=== PATIENT | female | born 1995 | race Caucasian/White ===

== ENCOUNTER 2018-08-16 14:20 | Inpatient (IN) | payer OTHER ==
[~2018-08-16] VITALS: Ht 167.6 cm; Wt 0.2 kg
[2018-08-16] MEDS ORDERED: Verotin-Gr Cap1 EACH PO (14:51)
[2018-08-16 15:28] LABS: BASOPHILS ABSOLUTE AUTO 0.04 K/mm3 (0.00-0.23); BASOPHILS PERCENT AUTO 0 % (0-2); EOSINOPHILS ABSOLUTE AUTO 0.05 K/mm3 (0.00-0.68); EOSINOPHILS PERCENT AUTO 0 % (0-6); Hematocrit 38.4 % (33.0-51.0); Hemoglobin 13.3 g/dL (11.5-16.0); IMMATURE GRAN ABSOLUTE AUTO 0.05 K/mm3 (0.00-0.10); IMMATURE GRAN PERCENT AUTO 0 % (0-1); LYMPHOCYTES ABSOLUTE AUTO 1.94 K/mm3 (0.84-5.20); LYMPHOCYTES PERCENT AUTO 15 % (21-46); MONOCYTES ABSOLUTE AUTO 0.98 K/mm3 (0.16-1.47); MONOCYTES PERCENT AUTO 8 % (4-13); Mean Corpuscular HGB 30.1 pg (26.0-34.0); Mean Corpuscular HGB Conc 34.6 g/dL (31.5-36.5); Mean Corpuscular Volume 87 fL (80-100); Mean Platelet Volume 12.9 fL (9.1-12.4); NEUTROPHILS ABSOLUTE AUTO 9.92 K/mm3 (1.96-9.15); NEUTROPHILS PERCENT AUTO 76 % (41-73); Platelet Count 184 K/mm3 (150-400); RDW Coefficient Variation 13.1 % (11.7-14.2); RDW Standard Deviation 40.6 fL (35.1-46.3); Red Blood Cell Count 4.42 M/mm3 (3.80-5.20); White Blood Cell Count 12.98 K/mm3 (4.00-11.30)
[2018-08-17 17:28] LABS: PO2 Cord - Arterial > 16 mmHg (16-20); pH Cord - Arterial 7.17 (7.28-7.35)
[2018-08-17 17:31] LABS: PO2 Cord - Venous 14.5 mmHg (28-32); pH Umbilical Cord - Venous 7.28 (7.26-7.35)
--- NOTE | 2018-08-17 17:51 | NUR ---
08/17/18 1751 Luana Jones VIABLE MALE INFANT DELIVERED WITH WHITE VACUUM X 1 PULL VIA LOWER TRANSVERSE INCISION AT 1715. 2 KIWI VACUUM ATTMEMPTS WITH 2 POP OFFS. WEIGHT 3385 GMS, 7# 7 OZ. LENGTH 20.5 INCHES, HEAD 14.5 INCHES, CHEST 13.25 INCHES. 9/9 APGARS. CORD SEGMENT W/AFSHIN RT FOR CORD GAS. CORD BLOOD GIVEN TO Radha DOWLING RN. PLACENTA 535 GMS.
[2018-08-18 06:22] LABS: BASOPHILS ABSOLUTE AUTO 0.02 K/mm3 (0.00-0.23); BASOPHILS PERCENT AUTO 0 % (0-2); EOSINOPHILS PERCENT AUTO 0 % (0-6); Hematocrit 34.6 % (33.0-51.0); Hemoglobin 11.7 g/dL (11.5-16.0); IMMATURE GRAN ABSOLUTE AUTO 0.09 K/mm3 (0.00-0.10); IMMATURE GRAN PERCENT AUTO 1 % (0-1); LYMPHOCYTES ABSOLUTE AUTO 1.84 K/mm3 (0.84-5.20); LYMPHOCYTES PERCENT AUTO 11 % (21-46); MONOCYTES ABSOLUTE AUTO 0.97 K/mm3 (0.16-1.47); MONOCYTES PERCENT AUTO 6 % (4-13); Mean Corpuscular HGB 29.6 pg (26.0-34.0); Mean Corpuscular HGB Conc 33.8 g/dL (31.5-36.5); Mean Corpuscular Volume 88 fL (80-100); NEUTROPHILS ABSOLUTE AUTO 14.55 K/mm3 (1.96-9.15); NEUTROPHILS PERCENT AUTO 83 % (41-73); Platelet Count 183 K/mm3 (150-400); RDW Standard Deviation 41.6 fL (35.1-46.3); Red Blood Cell Count 3.95 M/mm3 (3.80-5.20); White Blood Cell Count 17.47 K/mm3 (4.00-11.30)
[2018-08-18 06:32] LABS: Mean Platelet Volume 13.2 fL (9.1-12.4)
--- NOTE | 2018-08-19 00:02 | NUR ---
SLIGHT SWELLING ABOVE IV INSERTION SITE. PATIENT DENIES PAIN AT SITE AND IV FLUSHES WITHOUT COMPLICATION. WILL ATTEMPT TO BABY IV FOR NEXT IV ABX DOSE DUE AT 0500. PATIENT INFORMED TO NOTIFY RN IF SITE BECOMES PAINFUL OR RED.
[2018-08-19] MEDS ORDERED: IBUP800 PO (09:07)
[2018-08-19] MEDS ORDERED: Percocet 5-3251 EACH PO (09:08)
--- NOTE | 2018-08-19 10:26 | NUR ---
DISCHARGE PARENTS VERBALIZE UNDERSTANDING OF DISCHARGE INSTRUCTIONS AND FOLLOW UP APPOINTMENTS. NO QUESTIONS OR CONCERNS. CARING FOR SELF AND INDEPENDANTLY.
--- NOTE | 2018-08-19 11:25 | NUR ---
CONSULT. GETTING READY TO GO HOME AND BABY IS ASLEEP. HE HAS BEEN LATCHING BETTER THROUGH THE NIGHT AND MOM IS FEELING MORE CONFIDENT. IS USING A SHIELD DUE TO FLAT NIPPLES. INSTRUCT IN CHANGES TO EXPECT DURING THE FIRST WEEK WITH FEEDINGS AND WITH BABY AND REFERRED TO [facility] FOR PHOTOS AND INFORMATION. DENIES QUESTIONS.
== END 2018-08-19 10:40 | disposition home or self-care (01) | DRG 788 ==
LOC: OBS 14:20 → BC 14:22 → OBS 14:26 → BC 14:37
PROVIDERS: Obstetrics & Gynecology; ADMIT Nurse Practitioner Obstetrics & Gynecology
PROC: 3E033VJ Introduction of Other Hormone into Peripheral Vein, Percutaneous Approach (ICD-10-PCS; 2018-08-17)
PROC: 10907ZC Drainage of Amniotic Fluid, Therapeutic from Products of Conception, Via Natural or Artificial Opening (ICD-10-PCS; 2018-08-17)
PROC: 10D00Z1 Extraction of Products of Conception, Low, Open Approach (ICD-10-PCS; principal; 2018-08-17 17:30)
DX: O14.94 Unspecified pre-eclampsia, complicating childbirth (principal); Z3A.38 38 weeks gestation of pregnancy; Z37.0 Single live birth; O36.8390 Maternal care for abnormalities of the fetal heart rate or rhythm, unspecified trimester, not applicable or unspecified; O77.9 Labor and delivery complicated by fetal stress, unspecified
CPT/HCPCS: 36415; 51702; 82803; 85025; 86850; 86900; 86901; J0690; J1100; J1885; J2210; J2405; J2590; J2704; J2765; J3010; J7120

== ENCOUNTER → 2018-08-16 | Outpatient (CLI) | payer OTHER ==
[~2018-08-16] MED LIST: IBUP800 PO; Percocet 5-3251 EACH PO; Verotin-Gr Cap1 EACH PO
[2018-08-16 11:31] LABS: Creatinine Urine 58.6 mg/dL (27.00-270.00); Protein, Urine Quantitative 10.5 mg/dL (0.0-11.9)
== END ==
LOC: LAB 10:59 → LAB SHORT 10:59
PROVIDERS: Nurse Practitioner Obstetrics & Gynecology
DX: Z36.89 Encounter for other specified antenatal screening (principal)
CPT/HCPCS: 81050; 82570; 84156

== ENCOUNTER → 2019-09-15 | Outpatient (CLI) | payer OTHER | END | disposition home or self-care (01) | LOC: LAB EV 10:39 → LAB SHORT 10:39 | DX: J03.90 Acute tonsillitis, unspecified (principal) | CPT/HCPCS: 87081 ==

== ENCOUNTER 2021-05-31 05:40 | Inpatient (IN) | payer OTHER ==
[~2021-05-31] VITALS: Ht 167.6 cm; Wt 111.4 kg
[2021-05-31 06:19] LABS: BASOPHILS ABSOLUTE AUTO 0.04 K/mm3 (0.00-0.23); BASOPHILS PERCENT AUTO 0 % (0-2); EOSINOPHILS ABSOLUTE AUTO 0.06 K/mm3 (0.00-0.68); EOSINOPHILS PERCENT AUTO 1 % (0-6); Hematocrit 35.3 % (33.0-51.0); Hemoglobin 12.4 g/dL (11.5-16.0); IMMATURE GRAN ABSOLUTE AUTO 0.04 K/mm3 (0.00-0.10); IMMATURE GRAN PERCENT AUTO 0 % (0-1); LYMPHOCYTES ABSOLUTE AUTO 2.53 K/mm3 (0.84-5.20); LYMPHOCYTES PERCENT AUTO 27 % (21-46); MONOCYTES ABSOLUTE AUTO 0.63 K/mm3 (0.16-1.47); MONOCYTES PERCENT AUTO 7 % (4-13); Mean Corpuscular HGB 30.1 pg (26.0-34.0); Mean Corpuscular HGB Conc 35.1 g/dL (31.5-36.5); Mean Corpuscular Volume 86 fL (80-100); Mean Platelet Volume 12.2 fL (9.1-12.4); NEUTROPHILS ABSOLUTE AUTO 6.11 K/mm3 (1.96-9.15); NEUTROPHILS PERCENT AUTO 65 % (41-73); Platelet Count 174 K/mm3 (150-400); RDW Coefficient Variation 12.8 % (11.7-14.2); RDW Standard Deviation 39.4 fL (35.1-46.3); Red Blood Cell Count 4.12 M/mm3 (3.80-5.20); White Blood Cell Count 9.41 K/mm3 (4.00-11.30)
--- NOTE | 2021-05-31 07:56 | NUR ---
05/31/21 0756 Armond Morillo PT ON ANCEF 2G BEFORE ENTERING OR AT 0727
[2021-05-31 08:30] LABS: PCO2 Cord - Arterial 52.4 mmHg (40-50); PO2 Cord - Arterial 16.3 mmHg (16-20); pH Cord - Arterial 7.21 (7.28-7.35)
[2021-05-31 08:32] LABS: PCO2 Cord - Venous 40.1 mmHg (40-50); pH Umbilical Cord - Venous 7.35 (7.26-7.35)
--- NOTE | 2021-05-31 09:49 | NUR ---
OUT TO ROOM WITH NATHANIEL, REPT TO Ester OSBORN RN
[2021-06-01 04:36] LABS: BASOPHILS ABSOLUTE AUTO 0.04 K/mm3 (0.00-0.23); BASOPHILS PERCENT AUTO 0 % (0-2); EOSINOPHILS ABSOLUTE AUTO 0.06 K/mm3 (0.00-0.68); EOSINOPHILS PERCENT AUTO 1 % (0-6); Hematocrit 33.9 % (33.0-51.0); Hemoglobin 11.4 g/dL (11.5-16.0); IMMATURE GRAN ABSOLUTE AUTO 0.04 K/mm3 (0.00-0.10); IMMATURE GRAN PERCENT AUTO 0 % (0-1); LYMPHOCYTES PERCENT AUTO 18 % (21-46); MONOCYTES ABSOLUTE AUTO 0.78 K/mm3 (0.16-1.47); MONOCYTES PERCENT AUTO 7 % (4-13); Mean Corpuscular HGB 29.2 pg (26.0-34.0); Mean Corpuscular HGB Conc 33.6 g/dL (31.5-36.5); Mean Corpuscular Volume 87 fL (80-100); Mean Platelet Volume 12.3 fL (9.1-12.4); NEUTROPHILS ABSOLUTE AUTO 8.38 K/mm3 (1.96-9.15); NEUTROPHILS PERCENT AUTO 74 % (41-73); Platelet Count 159 K/mm3 (150-400); RDW Coefficient Variation 13.1 % (11.7-14.2); RDW Standard Deviation 40.6 fL (35.1-46.3); Red Blood Cell Count 3.91 M/mm3 (3.80-5.20)
--- NOTE | 2021-06-01 06:23 | NUR ---
INCISION VISUALIZED, WELL-APPROXIMATED, INTACT, STERI STRIPS IN PLACE, NO DRAINAGE.
[2021-06-01] MEDS ORDERED: Percocet 5-3251 EACH PO (09:39)
[2021-06-01] MEDS ORDERED: DOCU100 PO (09:40)
[2021-06-01] MEDS ORDERED: IBUP800 PO (09:40)
--- NOTE | 2021-06-01 14:53 | NUR ---
pt and significant other given written and verbal discharge instructions. questions answered and verbalize understanding. prescriptions given and Chandler, Vita's , dropped them off at [facility] to be filled. Pt passing gas, has minimal pain and is doing well. Requests to go home today. Principal Accounts Clerk in and dc order given. Vita will follow up Thursday at 1400 with Meg BURNETT RN for ppfu. She will also see Dr Trujillo on 06/06/21 for her Post-operative/ appt in the office.
--- NOTE | 2021-06-01 17:19 | NUR ---
Discharged home with and secure in [facility]. Scripts were filled and 1 percocet given per request prior to dc.
== END 2021-06-01 17:15 | disposition home or self-care (01) | DRG 788 ==
LOC: BC 05:40
PROVIDERS: ADMIT Obstetrics & Gynecology
PROC: 10D00Z1 Extraction of Products of Conception, Low, Open Approach (ICD-10-PCS; principal; 2021-05-31 07:30)
DX: O34.211 Maternal care for low transverse scar from previous cesarean delivery (principal); Z3A.39 39 weeks gestation of pregnancy; Z37.0 Single live birth; O36.63X0 Maternal care for excessive fetal growth, third trimester, not applicable or unspecified
CPT/HCPCS: 36415; 82803; 85025; 86850; 86900; 86901; A9270; J0690; J1885; J2405; J2590; J2765; J3010; J7120

== ENCOUNTER → 2023-05-19 | Outpatient (CLI) | payer OTHER ==
[~2023-05-19] MED LIST changes: +DOCU100 PO
== END ==
LOC: LAB SHORT 09:40 → LAB 09:40
DX: J03.90 Acute tonsillitis, unspecified (principal)
CPT/HCPCS: 87081

== ENCOUNTER → 2025-05-05 | Outpatient (CLI) | payer OTHER ==
[2025-05-11 17:41] LABS: HPVG SOURCE Cervical
== END | disposition home or self-care (01) ==
LOC: LAB SHORT 10:19 → LAB 10:19
PROVIDERS: Physician Assistant
DX: Z01.419 Encounter for gynecological examination (general) (routine) without abnormal findings (principal)
CPT/HCPCS: 87624; 87625; G0145